=== PATIENT | female | born 1950 ===

== ENCOUNTER 2019-01-12 10:09 | Inpatient (IN) | payer MEDICARE ==
[2019-01-12 14:21] LABS: Alanine Aminotransferase 7 units/L (7-56); Albumin 3.9 g/dL (3.9-5); BUN/Creatinine Ratio 14; Blood Urea Nitrogen 13 mg/dL (7-17); Calcium 9.6 mg/dL (8.4-10.2); Hemolysis Index 13
[2019-01-12] MEDS ORDERED: GEODON IM PRN (20:46)
[2019-01-12] MEDS ORDERED: BENADRYL PO PRN (20:50)
[2019-01-12] MEDS: NAMENDA PO SCH (21:53)
[2019-01-12] MEDS: ARICEPT PO SCH (21:53)
[2019-01-12] MEDS: ATIVAN PO PRN (21:53)
[2019-01-12] MEDS: REMERON PO SCH (21:53)
[2019-01-13] MEDS ORDERED: SYNTHROID PO SCH (06:00)
[2019-01-13] MEDS: SYNTHROID PO SCH (06:09)
[2019-01-13] MEDS: RisperDAL PO SCH ×3 (08:25→21:12)
[2019-01-13] MEDS: NEURONTIN PO SCH ×3 (08:25→21:11)
--- NOTE | 2019-01-13 09:25 | History and Physical Report ---
GP History & Physical - History of Present Illness Date of admission: 01/12/19 Reason for Admission: Danger to self, Psychopathology interference, Unable to care for self Chief Complaint: Threatening suicide History of Present Illness: The patient is a 69yo female with advanced dementia and multiple medical problems. She reportedly threatened suicide by jumping from an overhang leading to her carer to request inpatient psych admission. The patient is severely demented, other than being able to state her name, she is not able to engage in meaningful conversation. She states her age as 22. She does not know where she is and why she is here. Legal Status: Voluntary Patient Problems: Current Active Problems MDD (major depressive disorder), recurrent episode, severe (Acute) Major neurocognitive disorder due to Alzheimer's disease, probable, with behavioral disturbance (Acute) Reaction to Hospitalization: Accepting Substance History - Substance History Drug Use: none Hx Tobacco Use: No Alcohol Use: No Past psychiatric history - Past Medical History Past Medical History: hypertension, hyperlipidemia, hypothyroidism - past Psychiatric treatment and history Psych: Depression - Social History Social history: other (Unable to obtain due to patient's factors) Review of Systems ROS unobtainable: due to mental status Results - Results Labs/Vitals: Laboratory Last Values Sodium 139 mmol/L (137-145) 01/12/19 13:29 Potassium 4.0 mmol/L (3.6-5.0) 01/12/19 13:29 Chloride 101.9 mmol/L (98-107) 01/12/19 13:29 Carbon Dioxide 25 mmol/L (22-30) 01/12/19 13:29 16 mmol/L 01/12/19 13:29 BUN 13 mg/dL (7-17) 01/12/19 13:29 0.9 mg/dL (0.7-1.2) 01/12/19 13:29 Estimated GFR > 60 ml/min 01/12/19 13:29 14 % 01/12/19 13:29 Glucose 126 mg/dL (65-100) H 01/12/19 13:29 Calcium 9.6 mg/dL (8.4-10.2) 01/12/19 13:29 0.30 mg/dL (0.1-1.2) 01/12/19 13:29 AST 15 units/L (5-40) 01/12/19 13:29 ALT 7 units/L (7-56) 01/12/19 13:29 92 units/L (35-129) 01/12/19 13:29 7.1 g/dL (6.3-8.2) 01/12/19 13:29 3.9 g/dL (3.9-5) 01/12/19 13:29 1.2 % 01/12/19 13:29 Last Vital Signs Temp 97.9 F 01/13/19 08:18 Pulse 71 01/13/19 08:18 Resp 20 01/13/19 08:18 BP 137/77 01/13/19 08:18 Pulse Ox 99 01/13/19 08:18 Physical Examination - Constitutional Vitals: Vital Signs Temp Pulse Resp BP Pulse Ox 97.9 F 71 20 137/77 99 01/13/19 08:18 01/13/19 08:18 01/13/19 08:18 01/13/19 08:18 01/13/19 08:18 Temperature -Last 24 Hours Temperature 97.9 F Temperature 98.6 F General appearance: Present: no acute distress - EENT Eyes: Present: PERRL, EOM intact ENT: hearing intact, clear oral mucosa - Neck Neck: Present: supple, normal ROM - Respiratory Respiratory effort: normal Mental Status Exam - Vital signs Last Vital Signs Temp 97.9 F 01/13/19 08:18 Pulse 71 01/13/19 08:18 Resp 20 01/13/19 08:18 BP 137/77 01/13/19 08:18 Pulse Ox 99 01/13/19 08:18 - Exam Orientation: person ((self only)) Affect: depressed Mood: congruent with affect Thought Process: Disorganized Perceptions: none Speech: paucity Concentration: distractible Motor activity: lethargic Level of consciousness: confused Memory: Recent Impaired, Remote Impaired Interaction: apathetic Mini mental status exam(if necessary): 0-17 Assessment and Plan - Psychiatric problem (1) MDD (major depressive disorder), recurrent episode, severe Current Visit: Yes Status: Acute plan to address problem: Patient will be admitted for inpatient psychiatric evaluation, medication adjustment and close monitoring The patient's behavior, mood, sleep and appetite will be closely monitored. Patient will be enrolled in individual and group therapeutic sessions and encouraged to attend. Patient will be provided with a safe and structured environment. Patient's physical health needs will be addressed by the Hospitalist. Social Assessment will be completed and the Loss Claim Clerk will work with patient and family to ensure a suitable and safe disposition Medication adjustment will be made as clinically indicated (2) Major neurocognitive disorder due to Alzheimer's disease, probable, with behavioral disturbance Current Visit: Yes Status: Acute plan to address problem: As above (3) Schizophrenia Current Visit: No Status: Acute plan to address problem: As above (4) Suicidal ideation Current Visit: No Status: Acute plan to address problem: As above Physician Certification - Certification Statement Physician Certification Statement: This is an acknowledgement statement that PEG PELAYO is a 69 year old F who requires inpatient psychiatric admission for treatment which could reasonably be expected to improve the patient's condition for depression Estimated period of time patient will need to remain in the hospital: 7 days Plan for post-hospital care: Out-patient treatment
[2019-01-13] MEDS: NAMENDA PO SCH ×2 (09:36→21:12)
[2019-01-13] MEDS: NORVASC PO SCH (09:36)
[2019-01-13] MEDS: COGENTIN PO SCH (09:38)
[2019-01-13] MEDS: ARICEPT PO SCH (21:12)
[2019-01-13] MEDS: REMERON PO SCH (21:12)
[2019-01-14] MEDS: SYNTHROID PO SCH (08:57)
[2019-01-14] MEDS: NORVASC PO SCH (10:54)
[2019-01-14] MEDS: NAMENDA PO SCH ×2 (10:55→21:47)
[2019-01-14] MEDS: NEURONTIN PO SCH ×3 (10:55→20:33)
[2019-01-14] MEDS: RisperDAL PO SCH ×3 (10:55→20:32)
[2019-01-14] MEDS: COGENTIN PO SCH (10:55)
--- NOTE | 2019-01-14 13:12 | Consultation ---
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 This history is from the chart as patient is severely demented, other than being able to state her name, she is not able to engage in meaningful conversation. Hospitalist/Internal medicine has been consulted for medical h-n-p. She denies any pains. PMH: as hpi PSH: "leg, back, neck, wrist, heart surgery" SH: no smoking, quit alcohol "65 months ago", denies drugs FH: refused to answer ROS: unable to obtain due to mental status Past History Past Medical History: hypertension, hyperlipidemia, hypothyroidism Social history: other (Unable to obtain due to patient's factors) Medications and Allergies Allergies Allergy/AdvReac Type Severity Reaction Status Date / Time No Known Allergies Allergy Verified 01/11/19 18:08 Home Medications Medication Instructions Recorded Confirmed Last Taken Type AtorvaSTATin [Lipitor] 10 mg PO DAILY 01/11/19 01/12/19 Unknown History Benztropine [Cogentin] 1 mg PO QDAY 01/11/19 01/12/19 Unknown History Donepezil [Aricept] 10 mg PO QHS 01/11/19 01/12/19 Unknown History Gabapentin [Neurontin] 400 mg PO TID 01/11/19 01/12/19 Unknown History Levothyroxine [Synthroid] 50 mcg PO QAM 01/11/19 01/12/19 Unknown History Memantine [Namenda] 10 mg PO BID 01/11/19 01/12/19 Unknown History Mirtazapine [Remeron 30mg TAB] 30 mg PO QHS 01/11/19 01/12/19 Unknown History amLODIPine [Norvasc] 10 mg PO DAILY 01/11/19 01/12/19 Unknown History risperiDONE [RisperDAL] 1 mg PO TID 01/11/19 01/12/19 Unknown History Active Meds: Active Medications Amlodipine Besylate (Norvasc) 10 mg PO QDAY [facility] Last Admin: 01/14/19 10:54 Dose: 10 mg Documented by: Atorvastatin Calcium (Lipitor) 10 mg PO QHS [facility] Last Admin: 01/13/19 21:11 Dose: 10 mg Documented by: Benztropine Mesylate (Cogentin) 1 mg PO QDAY [facility] Last Admin: 01/14/19 10:55 Dose: 1 mg Documented by: Diphenhydramine HCl (Benadryl) 50 mg PO Q6H PRN PRN Reason: Itching Donepezil HCl (Aricept) 10 mg PO QHS [facility] Last Admin: 01/13/19 21:12 Dose: 10 mg Documented by: Gabapentin (Neurontin) 400 mg PO TID [facility] Last Admin: 01/14/19 10:55 Dose: 400 mg Documented by: Haloperidol (Haldol) 5 mg PO Q6H PRN PRN Reason: Agitation Levothyroxine Sodium (Synthroid) 50 mcg PO DAILY@0600 [facility] Last Admin: 01/14/19 08:57 Dose: 50 mcg Documented by: Lorazepam (Ativan) 2 mg PO Q6H PRN PRN Reason: Agitation Last Admin: 01/12/19 21:53 Dose: 2 mg Documented by: Memantine (Namenda) 10 mg PO Q12HR [facility] Last Admin: 01/14/19 10:55 Dose: 10 mg Documented by: Mirtazapine (Remeron) 30 mg PO QHS [facility] Last Admin: 01/13/19 21:12 Dose: 30 mg Documented by: Risperidone (Risperdal) 1 mg PO TID [facility] Last Admin: 01/14/19 10:55 Dose: 1 mg Documented by: Ziprasidone (Geodon) 10 mg IM BID PRN PRN Reason: Agitation Exam - Physical Exam Narrative exam: Gen: WDWN, NAD, Awake, Alert, Orientated x 1 HEENT: NCAT, EOMI, PERRL, OP Clear Neck: supple, no adenopathy, no thyromegaly, no JVD CVS/Heart: RRR, normal S1S2, pulses present bilaterally Chest/Lungs: CTA B, Symmetrical chest expansion, good air entry bilaterally GI/Abdomen: soft, NTND, good bowel sounds, no guarding or rebound /Bladder: no suprapubic tenderness, no CVA or paraspinal tenderness Extermity/Skin: no c/c/e, no obvious rash MSK: FROM x 4 Neuro: CN 2-12 grossly intact, doesn't follow all commands, had facial asymmetry, gait is steady Psych: wondering, difficult to re-direct - Constitutional Vitals: Temp Pulse Resp BP Pulse Ox 97.9 F 63 20 178/84 99 01/13/19 10:00 01/14/19 10:54 01/13/19 10:00 01/14/19 10:54 01/13/19 10:00 Results - Labs CBC & Chem 7: 01/12/19 13:29 Assessment and Plan Patient is a 69 yo woman with a history of hypertension, hyperlipidemia, hypothyroidism, depression and Advance dementia with behavioral disturbances who presented to [facility] after she reportedly threatened suicide by 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 This history is from the chart as patient is severely demented, other than being able to state her name, she is not able to engage in meaningful conversation. Hospitalist/Internal medicine has been consulted for medical h-n-p. Hypertension: continue Norvasc, change diet to cardiac for low salt intake Hypothyroidism: check TSH, on levothyroxine 50 mcg and screen for anemia with cbc Dyslipidemia: check Lipid panel, on lipitor 10mg Advance dementia with behavior disturbances and SI: per Psych Hyperglycemia: check a1c cbc, lipid, tsh, a1c ordered
--- NOTE | 2019-01-14 15:41 | Progress Note ---
Subjective Date of service: 01/14/19 Principal diagnosis: Schizophrenia, depression, dementia Subjective Comment: Patient is severely confused, lethargic and at times assumes abnormal postures (?catatonia) Objective - Criteria for Continued Treatment Criteria for Continued Treatment: Improving Level of Functioning, Reducing Isolative Behaviors, Stablizing Level of Functioning, Improving Emotional/Socia - Mental Status Mental Status: Oriented x 1 Person only - Objective Observation Participation Level: Minimal Assessment and Plan - Patient Problems (1) MDD (major depressive disorder), recurrent episode, severe Current Visit: Yes Status: Acute Plan to address problem: Patient will be admitted for inpatient psychiatric evaluation, medication adjustment and close monitoring The patient's behavior, mood, sleep and appetite will be closely monitored. Patient will be enrolled in individual and group therapeutic sessions and encouraged to attend. Patient will be provided with a safe and structured environment. Patient's physical health needs will be addressed by the Hospitalist. Social Assessment will be completed and the General Office Clerk will work with patient and family to ensure a suitable and safe disposition Medication adjustment will be made as clinically indicated (2) Major neurocognitive disorder due to Alzheimer's disease, probable, with behavioral disturbance Current Visit: Yes Status: Acute (3) Schizophrenia Current Visit: No Status: Acute (4) Suicidal ideation Current Visit: No Status: Acute
[2019-01-14] MEDS: REMERON PO SCH (21:47)
[2019-01-14] MEDS: ARICEPT PO SCH (21:47)
[2019-01-15] MEDS: SYNTHROID PO SCH (05:48)
[2019-01-15] MEDS: NEURONTIN PO SCH ×3 (09:20→20:00)
[2019-01-15] MEDS: NAMENDA PO SCH ×2 (09:21→21:08)
[2019-01-15] MEDS: RisperDAL PO SCH ×3 (09:21→20:00)
[2019-01-15] MEDS: COGENTIN PO SCH (09:21)
[2019-01-15] MEDS: NORVASC PO SCH (10:00)
[2019-01-15 15:11] LABS: Hematocrit 39.4 % (30.3-42.9); Hemoglobin 12.8 gm/dl (10.1-14.3); Mean Corpuscular HGB Conc 32 % (30-34); Mean Corpuscular Volume 87 fl (79-97); Platelet Count 276 K/mm3 (140-440); Red Blood Count 4.52 M/mm3 (3.65-5.03); Red Cell Distribution Width 15.5 % (13.2-15.2)
[2019-01-15 15:26] LABS: Chol/HDL Ratio 3.24 %
[2019-01-15] MEDS: REMERON PO SCH (21:08)
[2019-01-15] MEDS: ARICEPT PO SCH (21:08)
[2019-01-16] MEDS: SYNTHROID PO SCH (07:05)
[2019-01-16] MEDS: RisperDAL PO SCH ×3 (08:51→20:13)
[2019-01-16] MEDS: NEURONTIN PO SCH ×3 (08:51→20:14)
[2019-01-16] MEDS: COGENTIN PO SCH (09:34)
[2019-01-16] MEDS: NAMENDA PO SCH ×2 (09:34→21:52)
[2019-01-16] MEDS: NORVASC PO SCH (09:35)
[2019-01-16] MEDS ORDERED: D50W (25GM) Syringe IV PRN (14:41)
--- NOTE | 2019-01-16 14:43 | Progress Note ---
Assessment and Plan Assessment and plan: Patient is a 69 yo woman with a history of hypertension, hyperlipidemia, hypothyroidism, depression and Advance dementia with behavioral disturbances who presented to [facility] after she reportedly threatened suicide by jumping from an overhang leading to her feltmaker and weigher to request inpatient psych admission. This history is from the chart as patient is severely demented, other than being able to state her name, she is not able to engage in meaningful conversation. Hospitalist/Internal medicine has been consulted for medical h-n-p. Hypertension: continue Norvasc, change diet to cardiac for low salt intake Hypothyroidism: check TSH, on levothyroxine 50 mcg and screen for anemia with cbc Type 2 DM, new?: d/w patient, start Metformin and add ssi and accuchecks Dyslipidemia: check Lipid panel, on lipitor 10mg Advance dementia with behavior disturbances and SI: per Psych Hyperglycemia: check a1c cbc, lipid, tsh, a1c ordered==>patient refused labwork, then started taking antipsych meds and labworks reviewed, and showed elevated TSH, most likely due to noncompliance and not taking levothyroxine, most likely DM type 2 with A1c 7.8 considering adding metformin if she allows, lipid panel is abnormal due to noncompliance. History Interval history: Patient seen and examined. Follow up labs. Patient still confused. Hospitalist Physical - Physical exam Narrative exam: Gen: WDWN, NAD, Awake, Alert, Orientated x 1 HEENT: NCAT, EOMI, PERRL, OP Clear Neck: supple, no adenopathy, no thyromegaly, no JVD CVS/Heart: RRR, normal S1S2, pulses present bilaterally Chest/Lungs: CTA B, Symmetrical chest expansion, good air entry bilaterally GI/Abdomen: soft, NTND, good bowel sounds, no guarding or rebound /Bladder: no suprapubic tenderness, no CVA or paraspinal tenderness Extermity/Skin: no c/c/e, no obvious rash MSK: FROM x 4 Neuro: CN 2-12 grossly intact, doesn't follow all commands, had facial asymmetry, gait is steady Psych: wondering, difficult to re-direct - Constitutional Vitals: Temp Pulse Resp BP Pulse Ox 98.2 F 66 16 118/70 96 01/16/19 11:36 01/16/19 11:36 01/16/19 11:36 01/16/19 11:36 01/16/19 11:36 General appearance: Present: no acute distress Results - Labs CBC & Chem 7: 01/15/19 14:47 01/12/19 13:29 Labs: Laboratory Last Values WBC 5.6 K/mm3 (4.5-11.0) 01/15/19 14:47 RBC 4.52 M/mm3 (3.65-5.03) 01/15/19 14:47 Hgb 12.8 gm/dl (10.1-14.3) 01/15/19 14:47 Hct 39.4 % (30.3-42.9) 01/15/19 14:47 MCV 87 fl (79-97) 01/15/19 14:47 MCH 28 pg (28-32) 01/15/19 14:47 MCHC 32 % (30-34) 01/15/19 14:47 RDW 15.5 % (13.2-15.2) H 01/15/19 14:47 Plt Count 276 K/mm3 (140-440) 01/15/19 14:47 Sodium 139 mmol/L (137-145) 01/12/19 13:29 Potassium 4.0 mmol/L (3.6-5.0) 01/12/19 13:29 Chloride 101.9 mmol/L (98-107) 01/12/19 13:29 Carbon Dioxide 25 mmol/L (22-30) 01/12/19 13:29 16 mmol/L 01/12/19 13:29 BUN 13 mg/dL (7-17) 01/12/19 13:29 0.9 mg/dL (0.7-1.2) 01/12/19 13:29 Estimated GFR > 60 ml/min 01/12/19 13:29 14 % 01/12/19 13:29 Glucose 126 mg/dL (65-100) H 01/12/19 13:29 7.8 % (4-6) H 01/15/19 14:47 Calcium 9.6 mg/dL (8.4-10.2) 01/12/19 13:29 0.30 mg/dL (0.1-1.2) 01/12/19 13:29 AST 15 units/L (5-40) 01/12/19 13:29 ALT 7 units/L (7-56) 01/12/19 13:29 92 units/L (35-129) 01/12/19 13:29 7.1 g/dL (6.3-8.2) 01/12/19 13:29 3.9 g/dL (3.9-5) 01/12/19 13:29 1.2 % 01/12/19 13:29 Triglycerides 100 mg/dL (2-149) 01/15/19 14:47 Cholesterol 188 mg/dL (50-199) 01/15/19 14:47 130 mg/dL (50-130) 01/15/19 14:47 58 mg/dL (40-59) 01/15/19 14:47 3.24 % 01/15/19 14:47 TSH 11.210 mlU/mL (0.270-4.200) H 01/15/19 14:47 Active Medications - Current Medications Current Medications: Generic Name Dose Route Start Last Admin Trade Name Freq PRN Reason Stop Dose Admin Amlodipine Besylate 10 mg 01/13/19 10:00 01/16/19 09:35 Norvasc PO 10 mg QDAY [facility] Administration Atorvastatin Calcium 10 mg 01/12/19 22:00 01/15/19 21:08 Lipitor PO 10 mg QHS [facility] Administration Benztropine Mesylate 1 mg 01/13/19 10:00 01/16/19 09:34 Cogentin PO 1 mg QDAY [facility] Administration Donepezil HCl 10 mg 01/12/19 22:00 01/15/19 21:08 Aricept PO 10 mg QHS [facility] Administration Gabapentin 400 mg 01/13/19 08:00 01/16/19 08:51 Neurontin PO 400 mg TID [facility] Administration Haloperidol 5 mg 01/12/19 20:49 Haldol PO Q6H PRN Agitation Levothyroxine Sodium 50 mcg 01/13/19 06:00 01/16/19 07:05 Synthroid PO 50 mcg DAILY@0600 [facility] Administration Lorazepam 2 mg 01/12/19 20:48 01/12/19 21:53 Ativan PO 2 mg Q6H PRN Administration Agitation Memantine 10 mg 01/12/19 22:00 01/16/19 09:34 Namenda PO 10 mg Q12HR [facility] Administration Metformin HCl 500 mg 01/16/19 17:00 Glucophage PO BIDDIAB [facility] Mirtazapine 30 mg 01/12/19 22:00 01/15/19 21:08 Remeron PO 30 mg QHS [facility] Administration Risperidone 1 mg 01/13/19 08:00 01/16/19 08:51 Risperdal PO 1 mg TID [facility] Administration
[2019-01-16] MEDS: GLUCOPHAGE PO SCH (15:59)
[2019-01-16] MEDS: HumaLOG SUB-Q SCH (16:29)
[2019-01-16] MEDS: ARICEPT PO SCH (21:52)
[2019-01-16] MEDS: REMERON PO SCH (21:52)
[2019-01-16] MEDS: ATIVAN PO PRN (21:52)
[2019-01-17] MEDS: SYNTHROID PO SCH (05:41)
[2019-01-17] MEDS: HumaLOG SUB-Q SCH ×3 (08:33→17:45)
[2019-01-17] MEDS: GLUCOPHAGE PO SCH ×2 (08:57→16:11)
[2019-01-17] MEDS: NEURONTIN PO SCH ×3 (08:57→20:52)
[2019-01-17] MEDS: RisperDAL PO SCH ×3 (08:57→20:52)
[2019-01-17] MEDS: COGENTIN PO SCH (11:28)
[2019-01-17] MEDS: NAMENDA PO SCH ×2 (11:29→21:00)
--- NOTE | 2019-01-17 11:29 | Progress Note ---
Subjective Date of service: 01/15/19 Principal diagnosis: Schizophrenia, depression, dementia Subjective Comment: Patient is severely confused, unable to engage in conversation, paces, eating and sleeping well. Objective - Criteria for Continued Treatment Criteria for Continued Treatment: Improving Level of Functioning, Stablizing Level of Functioning, Improving Emotional/Socia - Mental Status Mental Status: Oriented x 1 Person only - Objective Observation Participation Level: None Reason(s) For Not Participating: Unable Assessment and Plan - Patient Problems (1) MDD (major depressive disorder), recurrent episode, severe Current Visit: Yes Status: Acute Plan to address problem: Patient will be admitted for inpatient psychiatric evaluation, medication adjustment and close monitoring The patient's behavior, mood, sleep and appetite will be closely monitored. Patient will be enrolled in individual and group therapeutic sessions and encouraged to attend. Patient will be provided with a safe and structured environment. Patient's physical health needs will be addressed by the Hospitalist. Social Assessment will be completed and the Lasting Machine Operator Hand Method will work with patient and family to ensure a suitable and safe disposition Medication adjustment will be made as clinically indicated (2) Major neurocognitive disorder due to Alzheimer's disease, probable, with behavioral disturbance Current Visit: Yes Status: Acute Plan to address problem: As above (3) Schizophrenia Current Visit: No Status: Acute Plan to address problem: As above (4) Suicidal ideation Current Visit: No Status: Acute Plan to address problem: As above
[2019-01-17] MEDS: NORVASC PO SCH (11:31)
--- NOTE | 2019-01-17 11:31 | Progress Note ---
Subjective Date of service: 01/16/19 Principal diagnosis: Schizophrenia, depression, dementia Subjective Comment: Patient is compliant with meds and cooperative with cares. She is severely confused, unable to engage in conversation, paces, eating and sleeping well. Objective - Criteria for Continued Treatment Criteria for Continued Treatment: Stablizing Level of Functioning, Improving Emotional/Socia - Mental Status Mental Status: Oriented x 1 Person only - Objective Observation Participation Level: None Reason(s) For Not Participating: Unable Assessment and Plan - Patient Problems (1) MDD (major depressive disorder), recurrent episode, severe Current Visit: Yes Status: Acute Plan to address problem: Patient will be admitted for inpatient psychiatric evaluation, medication adjustment and close monitoring The patient's behavior, mood, sleep and appetite will be closely monitored. Patient will be enrolled in individual and group therapeutic sessions and encouraged to attend. Patient will be provided with a safe and structured environment. Patient's physical health needs will be addressed by the Hospitalist. 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
--- NOTE | 2019-01-17 11:32 | Progress Note ---
Subjective Date of service: 01/17/19 Principal diagnosis: Schizophrenia, depression, dementia Subjective Comment: Patient is compliant with meds and cooperative with cares. She is severely confused, unable to engage in conversation, paces, eating and sleeping well. Objective - Criteria for Continued Treatment Criteria for Continued Treatment: Stablizing Level of Functioning, Improving Emotional/Socia - Mental Status Mental Status: Oriented x 1 Person only - Objective Observation Participation Level: Minimal Assessment and Plan - Patient Problems (1) MDD (major depressive disorder), recurrent episode, severe Current Visit: Yes Status: Acute Plan to address problem: Patient will be admitted for inpatient psychiatric evaluation, medication adjustment and close monitoring The patient's behavior, mood, sleep and appetite will be closely monitored. Patient will be enrolled in individual and group therapeutic sessions and encouraged to attend. Patient will be provided with a safe and structured environment. Patient's physical health needs will be addressed by the Hospitalist. Social Assessment will be completed and the Score Caller will work with patient and family to ensure a suitable and safe disposition Medication adjustment will be made as clinically indicated (2) Major neurocognitive disorder due to Alzheimer's disease, probable, with behavioral disturbance Current Visit: Yes Status: Acute Plan to address problem: As above (3) Schizophrenia Current Visit: No Status: Acute Plan to address problem: As above (4) Suicidal ideation Current Visit: No Status: Acute Plan to address problem: As above
[2019-01-17] MEDS: REMERON PO SCH (21:00)
[2019-01-17] MEDS: ARICEPT PO SCH (21:00)
[2019-01-18] MEDS: SYNTHROID PO SCH (06:06)
[2019-01-18] MEDS: HumaLOG SUB-Q SCH ×3 (08:51→17:01)
[2019-01-18] MEDS: NEURONTIN PO SCH ×3 (08:52→20:33)
[2019-01-18] MEDS: GLUCOPHAGE PO SCH ×2 (08:52→18:32)
[2019-01-18] MEDS: RisperDAL PO SCH ×3 (08:52→20:33)
[2019-01-18] MEDS: NAMENDA PO SCH ×2 (10:21→21:57)
[2019-01-18] MEDS: COGENTIN PO SCH (10:21)
[2019-01-18] MEDS: NORVASC PO SCH (10:28)
--- NOTE | 2019-01-18 11:38 | Progress Note ---
Subjective Date of service: 01/18/19 Principal diagnosis: Schizophrenia, depression, dementia Subjective Comment: Patient is compliant with meds and cooperative with cares. She is severely confused, unable to engage in conversation, paces, eating and sleeping well. Objective - Criteria for Continued Treatment Criteria for Continued Treatment: Improving Level of Functioning, Stablizing Level of Functioning, Improving Emotional/Socia - Mental Status Mental Status: Oriented x 1 Person only - Objective Observation Participation Level: Minimal Reason(s) For Not Participating: Unable Assessment and Plan - Patient Problems (1) MDD (major depressive disorder), recurrent episode, severe Current Visit: Yes Status: Acute Plan to address problem: Patient will be admitted for inpatient psychiatric evaluation, medication adjustment and close monitoring The patient's behavior, mood, sleep and appetite will be closely monitored. Patient will be enrolled in individual and group therapeutic sessions and encouraged to attend. Patient will be provided with a safe and structured environment. Patient's physical health needs will be addressed by the Hospitalist. Social Assessment will be completed and the Prefitter Doors will work with patient and family to ensure a suitable and safe disposition Medication adjustment will be made as clinically indicated (2) Major neurocognitive disorder due to Alzheimer's disease, probable, with behavioral disturbance Current Visit: Yes Status: Acute (3) Schizophrenia Current Visit: No Status: Acute (4) Suicidal ideation Current Visit: No Status: Acute
[2019-01-18] MEDS: ARICEPT PO SCH (21:47)
[2019-01-18] MEDS: REMERON PO SCH (21:47)
[2019-01-19] MEDS: SYNTHROID PO SCH (05:21)
[2019-01-19] MEDS: HumaLOG SUB-Q SCH ×3 (08:28→19:27)
[2019-01-19] MEDS: RisperDAL PO SCH ×3 (10:26→20:17)
[2019-01-19] MEDS: NEURONTIN PO SCH ×3 (10:26→20:17)
[2019-01-19] MEDS: GLUCOPHAGE PO SCH ×2 (10:26→17:38)
[2019-01-19] MEDS: NAMENDA PO SCH ×2 (10:27→21:26)
[2019-01-19] MEDS: COGENTIN PO SCH (10:27)
[2019-01-19] MEDS: NORVASC PO SCH (10:28)
--- NOTE | 2019-01-19 11:00 | Progress Note ---
Subjective Date of service: 01/19/19 Principal diagnosis: Schizophrenia, depression, dementia Subjective Comment: Patient is doing better, she is compliant with meds and cooperative with cares. She is severely confused, unable to engage in conversation, paces, gait is more steady, eating and sleeping well. Objective - Criteria for Continued Treatment Criteria for Continued Treatment: Stablizing Level of Functioning - Mental Status Mental Status: Oriented x 1 Person only Assessment and Plan - Patient Problems (1) MDD (major depressive disorder), recurrent episode, severe Current Visit: Yes Status: Acute Plan to address problem: Patient will be admitted for inpatient psychiatric evaluation, medication adjustment and close monitoring The patient's behavior, mood, sleep and appetite will be closely monitored. Patient will be enrolled in individual and group therapeutic sessions and encouraged to attend. Patient will be provided with a safe and structured environment. Patient's physical health needs will be addressed by the Hospitalist. Social Assessment will be completed and the Rubber Thread Spooler will work with patient and family to ensure a suitable and safe disposition Medication adjustment will be made as clinically indicated (2) Major neurocognitive disorder due to Alzheimer's disease, probable, with behavioral disturbance Current Visit: Yes Status: Acute Plan to address problem: As above (3) Schizophrenia Current Visit: No Status: Acute Plan to address problem: As above (4) Suicidal ideation Current Visit: No Status: Acute Plan to address problem: As above
[2019-01-19] MEDS: ATIVAN PO PRN (20:19)
[2019-01-19] MEDS: ARICEPT PO SCH (21:25)
[2019-01-19] MEDS: REMERON PO SCH (21:26)
[2019-01-20] MEDS: SYNTHROID PO SCH (05:39)
[2019-01-20] MEDS: GLUCOPHAGE PO SCH ×2 (08:19→17:00)
[2019-01-20] MEDS: HumaLOG SUB-Q SCH ×3 (08:19→17:00)
[2019-01-20] MEDS: RisperDAL PO SCH ×3 (08:20→20:28)
[2019-01-20] MEDS: NEURONTIN PO SCH ×3 (08:20→20:28)
--- NOTE | 2019-01-20 11:19 | Progress Note ---
Subjective Date of service: 01/20/19 Principal diagnosis: Schizophrenia, depression, dementia Subjective Comment: Patient is doing better, she is compliant with meds and cooperative with cares. She is severely confused, unable to engage in conversation, paces, gait is more steady, eating and sleeping well. Objective - Criteria for Continued Treatment Criteria for Continued Treatment: Improving Level of Functioning, Stablizing Level of Functioning, Improving Emotional/Socia, Decreasing Frequency of Hospitalization - Mental Status Mental Status: Oriented x 1 Person only - Objective Observation Participation Level: Minimal Assessment and Plan - Patient Problems (1) MDD (major depressive disorder), recurrent episode, severe Current Visit: Yes Status: Acute Plan to address problem: Patient will be admitted for inpatient psychiatric evaluation, medication adjustment and close monitoring The patient's behavior, mood, sleep and appetite will be closely monitored. Patient will be enrolled in individual and group therapeutic sessions and encouraged to attend. Patient will be provided with a safe and structured environment. Patient's physical health needs will be addressed by the Hospitalist. Social Assessment will be completed and the Rail Doweling Machine Operator will work with patient and family to ensure a suitable and safe disposition Medication adjustment will be made as clinically indicated. Will decrease Gabapentin to 300mg tid due to excessive sedation (2) Major neurocognitive disorder due to Alzheimer's disease, probable, with behavioral disturbance Current Visit: Yes Status: Acute Plan to address problem: As above (3) Schizophrenia Current Visit: No Status: Acute Plan to address problem: As above (4) Suicidal ideation Current Visit: No Status: Acute Plan to address problem: As above Medications and Allergies Allergies Allergy/AdvReac Type Severity Reaction Status Date / Time No Known Allergies Allergy Verified 01/11/19 18:08 Home Medications Medication Instructions Recorded Confirmed Last Taken Type AtorvaSTATin [Lipitor] 10 mg PO DAILY 01/11/19 01/12/19 Unknown History Benztropine [Cogentin] 1 mg PO QDAY 01/11/19 01/12/19 Unknown History Donepezil [Aricept] 10 mg PO QHS 01/11/19 01/12/19 Unknown History Gabapentin [Neurontin] 400 mg PO TID 01/11/19 01/12/19 Unknown History Levothyroxine [Synthroid] 50 mcg PO QAM 01/11/19 01/12/19 Unknown History Memantine [Namenda] 10 mg PO BID 01/11/19 01/12/19 Unknown History Mirtazapine [Remeron 30mg TAB] 30 mg PO QHS 01/11/19 01/12/19 Unknown History amLODIPine [Norvasc] 10 mg PO DAILY 01/11/19 01/12/19 Unknown History risperiDONE [RisperDAL] 1 mg PO TID 01/11/19 01/12/19 Unknown History Active Meds: Active Medications Amlodipine Besylate (Norvasc) 10 mg PO QDAY [facility] Last Admin: 01/19/19 10:28 Dose: 10 mg Documented by: Atorvastatin Calcium (Lipitor) 10 mg PO QHS [facility] Last Admin: 01/19/19 21:26 Dose: 10 mg Documented by: Benztropine Mesylate (Cogentin) 1 mg PO QDAY [facility] Last Admin: 01/19/19 10:27 Dose: 1 mg Documented by: Dextrose (D50w (25gm) Syringe) 50 ml IV PRN PRN PRN Reason: Hypoglycemia Donepezil HCl (Aricept) 10 mg PO QHS [facility] Last Admin: 01/19/19 21:25 Dose: 10 mg Documented by: Gabapentin (Neurontin) 400 mg PO TID [facility] Last Admin: 01/20/19 08:20 Dose: 400 mg Documented by: Haloperidol (Haldol) 5 mg PO Q6H PRN PRN Reason: Agitation Insulin Human Lispro (Humalog) 0 unit SUB-Q [facility]; Protocol Last Admin: 01/20/19 08:19 Dose: Not Given Documented by: Levothyroxine Sodium (Synthroid) 50 mcg PO DAILY@0600 [facility] Last Admin: 01/20/19 05:39 Dose: 50 mcg Documented by: Lorazepam (Ativan) 2 mg PO Q6H PRN PRN Reason: Agitation Last Admin: 01/19/19 20:19 Dose: 2 mg Documented by: Memantine (Namenda) 10 mg PO Q12HR [facility] Last Admin: 01/19/19 21:26 Dose: 10 mg Documented by: Metformin HCl (Glucophage) 500 mg PO BIDDIAB [facility] Last Admin: 01/20/19 08:19 Dose: 500 mg Documented by: Mirtazapine (Remeron) 30 mg PO QHS [facility] Last Admin: 01/19/19 21:26 Dose: 30 mg Documented by: Risperidone (Risperdal) 1 mg PO TID [facility] Last Admin: 01/20/19 08:20 Dose: 1 mg Documented by:
[2019-01-20] MEDS: NORVASC PO SCH (11:24)
[2019-01-20] MEDS: NAMENDA PO SCH ×2 (11:24→21:18)
[2019-01-20] MEDS: COGENTIN PO SCH (11:25)
[2019-01-20] MEDS: REMERON PO SCH (21:18)
[2019-01-20] MEDS: ARICEPT PO SCH (21:18)
[2019-01-20] MEDS: ATIVAN PO PRN (21:18)
[2019-01-20] MEDS: HALDOL PO PRN (23:34)
[2019-01-21] MEDS: SYNTHROID PO SCH (06:30)
[2019-01-21] MEDS: RisperDAL PO SCH ×3 (07:58→21:40)
[2019-01-21] MEDS: NEURONTIN PO SCH ×3 (07:58→21:40)
[2019-01-21] MEDS: GLUCOPHAGE PO SCH ×2 (07:58→18:56)
[2019-01-21] MEDS: HumaLOG SUB-Q SCH ×3 (07:59→18:57)
--- NOTE | 2019-01-21 09:05 | Progress Note ---
Subjective Date of service: 01/21/19 Principal diagnosis: Schizophrenia, depression, dementia Subjective Comment: Patient did not sleep well last night. She is agitated, restless and disrobing in common areas of the chi. She is severely confused, unable to engage in conversation, paces, gait is more steady, eating and sleeping well. Objective - Criteria for Continued Treatment Criteria for Continued Treatment: Improving Level of Functioning, Stablizing Level of Functioning, Improving Emotional/Socia, Decreasing Frequency of Hospitalization - Mental Status Mental Status: Oriented x 1 Person only - Objective Observation Participation Level: Minimal Assessment and Plan - Patient Problems (1) MDD (major depressive disorder), recurrent episode, severe Current Visit: Yes Status: Acute Plan to address problem: Patient will be admitted for inpatient psychiatric evaluation, medication adjustment and close monitoring The patient's behavior, mood, sleep and appetite will be closely monitored. Patient will be enrolled in individual and group therapeutic sessions and encouraged to attend. Patient will be provided with a safe and structured environment. Patient's physical health needs will be addressed by the Hospitalist. Social Assessment will be completed and the Care Worker will work with patient and family to ensure a suitable and safe disposition Medication adjustment will be made as clinically indicated. (2) Major neurocognitive disorder due to Alzheimer's disease, probable, with behavioral disturbance Current Visit: Yes Status: Acute Plan to address problem: As above (3) Schizophrenia Current Visit: No Status: Acute Plan to address problem: As above (4) Suicidal ideation Current Visit: No Status: Acute Plan to address problem: As above
[2019-01-21] MEDS: NAMENDA PO SCH ×2 (13:30→21:40)
[2019-01-21] MEDS: NORVASC PO SCH (13:31)
[2019-01-21] MEDS: COGENTIN PO SCH (13:32)
[2019-01-21] MEDS: ARICEPT PO SCH (21:40)
[2019-01-21] MEDS: REMERON PO SCH (21:40)
[2019-01-22] MEDS: SYNTHROID PO SCH (06:19)
--- NOTE | 2019-01-22 08:26 | Progress Note ---
Subjective Date of service: 01/22/19 Principal diagnosis: Schizophrenia, depression, dementia Subjective Comment: Patient is calm this morning. She is severely confused, unable to engage in conversation, paces, gait is more steady, eating and sleeping well. Objective - Criteria for Continued Treatment Criteria for Continued Treatment: Improving Level of Functioning, Stablizing Level of Functioning, Improving Emotional/Socia - Mental Status Mental Status: Oriented x 1 Person only - Objective Observation Participation Level: Moderate Assessment and Plan - Patient Problems (1) MDD (major depressive disorder), recurrent episode, severe Current Visit: Yes Status: Acute Plan to address problem: Patient will be admitted for inpatient psychiatric evaluation, medication adjustment and close monitoring The patient's behavior, mood, sleep and appetite will be closely monitored. Patient will be enrolled in individual and group therapeutic sessions and encouraged to attend. Patient will be provided with a safe and structured environment. Patient's physical health needs will be addressed by the Hospitalist. Social Assessment will be completed and the Flour Inspector will work with patient and family to ensure a suitable and safe disposition Medication adjustment will be made as clinically indicated. (2) Major neurocognitive disorder due to Alzheimer's disease, probable, with behavioral disturbance Current Visit: Yes Status: Acute Plan to address problem: As above (3) Schizophrenia Current Visit: No Status: Acute Plan to address problem: As above (4) Suicidal ideation Current Visit: No Status: Acute Plan to address problem: As above Medications & Allergies - Medications Allergies/Adverse Reactions: Allergies No Known Allergies Allergy (Verified 01/11/19 18:08) Home Medications: Home Medications Medication Instructions Recorded Confirmed Last Taken Type AtorvaSTATin [Lipitor] 10 mg PO DAILY 01/11/19 01/12/19 Unknown History Benztropine [Cogentin] 1 mg PO QDAY 01/11/19 01/12/19 Unknown History Donepezil [Aricept] 10 mg PO QHS 01/11/19 01/12/19 Unknown History Gabapentin [Neurontin] 400 mg PO TID 01/11/19 01/12/19 Unknown History Levothyroxine [Synthroid] 50 mcg PO QAM 01/11/19 01/12/19 Unknown History Memantine [Namenda] 10 mg PO BID 01/11/19 01/12/19 Unknown History Mirtazapine [Remeron 30mg TAB] 30 mg PO QHS 01/11/19 01/12/19 Unknown History amLODIPine [Norvasc] 10 mg PO DAILY 01/11/19 01/12/19 Unknown History risperiDONE [RisperDAL] 1 mg PO TID 01/11/19 01/12/19 Unknown History Active Medications: Generic Name Dose Route Start Last Admin Trade Name Darshana PRN Reason Stop Dose Admin Amlodipine Besylate 10 mg 01/13/19 10:00 01/21/19 13:31 Norvasc PO 10 mg QDAY [facility] Administration Atorvastatin Calcium 10 mg 01/12/19 22:00 01/21/19 21:40 Lipitor PO 10 mg QHS [facility] Administration Benztropine Mesylate 1 mg 01/13/19 10:00 01/21/19 13:32 Cogentin PO 1 mg QDAY [facility] Administration Dextrose 50 ml 01/16/19 14:41 D50w (25gm) Syringe IV PRN PRN Hypoglycemia Donepezil HCl 10 mg 01/12/19 22:00 01/21/19 21:40 Aricept PO 10 mg QHS [facility] Administration Gabapentin 400 mg 01/13/19 08:00 01/21/19 21:40 Neurontin PO 400 mg TID [facility] Administration Haloperidol 5 mg 01/12/19 20:49 01/20/19 23:34 Haldol PO 5 mg Q6H PRN Administration Agitation Insulin Human Lispro 0 unit 01/16/19 16:30 01/21/19 18:57 Humalog SUB-Q Not Given [facility] Protocol Levothyroxine Sodium 50 mcg 01/13/19 06:00 01/22/19 06:19 Synthroid PO 50 mcg DAILY@0600 [facility] Administration Lorazepam 2 mg 01/12/19 20:48 01/20/19 21:18 Ativan PO 2 mg Q6H PRN Administration Agitation Memantine 10 mg 01/12/19 22:00 01/21/19 21:40 Namenda PO 10 mg Q12HR [facility] Administration Metformin HCl 500 mg 01/16/19 17:00 01/21/19 18:56 Glucophage PO Not Given BIDDIAB [facility] Mirtazapine 30 mg 01/12/19 22:00 01/21/19 21:40 Remeron PO 30 mg QHS [facility] Administration Risperidone 1 mg 01/13/19 08:00 01/21/19 21:40 Risperdal PO 1 mg TID [facility] Administration
[2019-01-22] MEDS: HumaLOG SUB-Q SCH ×3 (08:56→16:07)
[2019-01-22] MEDS: GLUCOPHAGE PO SCH ×2 (08:57→16:07)
[2019-01-22] MEDS: RisperDAL PO SCH ×3 (08:58→21:10)
[2019-01-22] MEDS: NEURONTIN PO SCH ×3 (08:58→21:10)
[2019-01-22] MEDS: NAMENDA PO SCH ×2 (09:20→21:10)
[2019-01-22] MEDS: COGENTIN PO SCH (09:20)
[2019-01-22] MEDS: NORVASC PO SCH (11:01)
[2019-01-22] MEDS: ATIVAN PO PRN ×2 (15:52→21:11)
[2019-01-22] MEDS: REMERON PO SCH (21:10)
[2019-01-22] MEDS: ARICEPT PO SCH (21:10)
[2019-01-22] MEDS: HALDOL PO PRN (21:10)
[2019-01-23] MEDS: SYNTHROID PO SCH (05:50)
[2019-01-23] MEDS: HumaLOG SUB-Q SCH ×3 (08:46→16:53)
[2019-01-23] MEDS: GLUCOPHAGE PO SCH ×2 (09:09→16:53)
[2019-01-23] MEDS: RisperDAL PO SCH ×3 (09:09→19:54)
[2019-01-23] MEDS: NEURONTIN PO SCH ×3 (09:09→19:54)
[2019-01-23] MEDS: NORVASC PO SCH (09:45)
[2019-01-23] MEDS: COGENTIN PO SCH (09:45)
[2019-01-23] MEDS: NAMENDA PO SCH ×2 (09:45→21:16)
[2019-01-23] MEDS: HALDOL PO PRN (09:57)
[2019-01-23] MEDS: ATIVAN PO PRN (10:55)
--- NOTE | 2019-01-23 20:00 | Progress Note ---
Subjective Date of service: 01/23/19 Principal diagnosis: Schizophrenia, depression, dementia Subjective Comment: Patient is hyperactive, agitated, intrusive and disruptive. She attempted to turn off another patient's Oxygen. She received PRN Haldol and Lorazepam which was effective. Objective - Criteria for Continued Treatment Criteria for Continued Treatment: Improving Level of Functioning, Stablizing Level of Functioning, Improving Emotional/Socia - Mental Status Mental Status: Oriented x 1 Person only - Objective Observation Participation Level: Minimal Assessment and Plan - Patient Problems (1) MDD (major depressive disorder), recurrent episode, severe Current Visit: Yes Status: Acute Plan to address problem: Patient will be admitted for inpatient psychiatric evaluation, medication adjustment and close monitoring The patient's behavior, mood, sleep and appetite will be closely monitored. Patient will be enrolled in individual and group therapeutic sessions and encouraged to attend. Patient will be provided with a safe and structured environment. Patient's physical health needs will be addressed by the Hospitalist. Social Assessment will be completed and the Music Publicist will work with pa tient and family to ensure a suitable and safe disposition Medication adjustment will be made as clinically indicated. (2) Major neurocognitive disorder due to Alzheimer's disease, probable, with behavioral disturbance Current Visit: Yes Status: Acute Plan to address problem: As above (3) Schizophrenia Current Visit: No Status: Acute Plan to address problem: As above (4) Suicidal ideation Current Visit: No Status: Acute Plan to address problem: As above Medications & Allergies - Medications Allergies/Adverse Reactions: Allergies No Known Allergies Allergy (Verified 01/11/19 18:08) Home Medications: Home Medications Medication Instructions Recorded Confirmed Last Taken Type AtorvaSTATin [Lipitor] 10 mg PO DAILY 01/11/19 01/12/19 Unknown History Benztropine [Cogentin] 1 mg PO QDAY 01/11/19 01/12/19 Unknown History Donepezil [Aricept] 10 mg PO QHS 01/11/19 01/12/19 Unknown History Gabapentin [Neurontin] 400 mg PO TID 01/11/19 01/12/19 Unknown History Levothyroxine [Synthroid] 50 mcg PO QAM 01/11/19 01/12/19 Unknown History Memantine [Namenda] 10 mg PO BID 01/11/19 01/12/19 Unknown History Mirtazapine [Remeron 30mg TAB] 30 mg PO QHS 01/11/19 01/12/19 Unknown History amLODIPine [Norvasc] 10 mg PO DAILY 01/11/19 01/12/19 Unknown History risperiDONE [RisperDAL] 1 mg PO TID 01/11/19 01/12/19 Unknown History Active Medications: Generic Name Dose Route Start Last Admin Trade Name Freq PRN Reason Stop Dose Admin Amlodipine Besylate 10 mg 01/13/19 10:00 01/23/19 09:45 Norvasc PO 10 mg QDAY [facility] Administration Atorvastatin Calcium 10 mg 01/12/19 22:00 01/22/19 21:10 Lipitor PO 10 mg QHS [facility] Administration Benztropine Mesylate 1 mg 01/13/19 10:00 01/23/19 09:45 Cogentin PO 1 mg QDAY [facility] Administration Dextrose 50 ml 01/16/19 14:41 D50w (25gm) Syringe IV PRN PRN Hypoglycemia Donepezil HCl 10 mg 01/12/19 22:00 01/22/19 21:10 Aricept PO 10 mg QHS [facility] Administration Gabapentin 400 mg 01/13/19 08:00 01/23/19 19:54 Neurontin PO 400 mg TID [facility] Administration Haloperidol 5 mg 01/12/19 20:49 01/23/19 09:57 Haldol PO 5 mg Q6H PRN Administration Agitation Insulin Human Lispro 0 unit 01/16/19 16:30 01/23/19 16:53 Humalog SUB-Q Not Given [facility] Protocol Levothyroxine Sodium 50 mcg 01/13/19 06:00 01/23/19 05:50 Synthroid PO 50 mcg DAILY@0600 [facility] Administration Lorazepam 2 mg 01/12/19 20:48 01/23/19 10:55 Ativan PO 2 mg Q6H PRN Administration Agitation Memantine 10 mg 01/12/19 22:00 01/23/19 09:45 Namenda PO 10 mg Q12HR [facility] Administration Metformin HCl 500 mg 01/16/19 17:00 01/23/19 16:53 Glucophage PO Not Given BIDDIAB [facility] Mirtazapine 30 mg 01/12/19 22:00 01/22/19 21:10 Remeron PO 30 mg QHS [facility] Administration Risperidone 1 mg 01/13/19 08:00 01/23/19 19:54 Risperdal PO 1 mg TID [facility] Administration
[2019-01-23 20:53] LABS: Bilirubin,Urine NEG (Negative); Blood,Urine NEG (Negative); Color,Urine Yellow (Yellow); Mucus,Urine FEW /HPF; Protein,Urine <15 mg/dL mg/dL (Negative); Urobilinogen,Urine < 2.0 mg/dL (<2.0)
[2019-01-23] MEDS: ARICEPT PO SCH (21:16)
[2019-01-23] MEDS: REMERON PO SCH (21:16)
[2019-01-24] MEDS: SYNTHROID PO SCH (06:04)
--- NOTE | 2019-01-24 09:35 | Progress Note ---
Subjective Date of service: 01/24/19 Principal diagnosis: Schizophrenia, depression, dementia Subjective Comment: Patient is physically aggressive towards staffs, urinates on the floor, hyperactive, agitated, intrusive and disruptive. She received PRN Haldol and Lorazepam last night. She is sedated this morning. Objective - Criteria for Continued Treatment Criteria for Continued Treatment: Improving Level of Functioning, Stablizing Level of Functioning, Improving Emotional/Socia - Mental Status Mental Status: Oriented x 1 Person only - Objective Observation Participation Level: Minimal Assessment and Plan - Patient Problems (1) MDD (major depressive disorder), recurrent episode, severe Current Visit: Yes Status: Acute Plan to address problem: Patient will be admitted for inpatient psychiatric evaluation, medication adjustment and close monitoring The patient's behavior, mood, sleep and appetite will be closely monitored. Patient will be enrolled in individual and group therapeutic sessions and encouraged to attend. Patient will be provided with a safe and structured environment. Patient's physical health needs will be addressed by the Hospitalist. Social Assessment will be completed and the Environmental Health Manager will work with patient and family to ensure a suitable and safe disposition Medication adjustment will be made as clinically indicated. (2) Major neurocognitive disorder due to Alzheimer's disease, probable, with behavioral disturbance Current Visit: Yes Status: Acute Plan to address problem: As above (3) Schizophrenia Current Visit: No Status: Acute Plan to address problem: As above (4) Suicidal ideation Current Visit: No Status: Acute Plan to address problem: As above Medications & Allergies - Medications Allergies/Adverse Reactions: Allergies No Known Allergies Allergy (Verified 01/11/19 18:08) Home Medications: Home Medications Medication Instructions Recorded Confirmed Last Taken Type AtorvaSTATin [Lipitor] 10 mg PO DAILY 01/11/19 01/12/19 Unknown History Benztropine [Cogentin] 1 mg PO QDAY 01/11/19 01/12/19 Unknown History Donepezil [Aricept] 10 mg PO QHS 01/11/19 01/12/19 Unknown History Gabapentin [Neurontin] 400 mg PO TID 01/11/19 01/12/19 Unknown History Levothyroxine [Synthroid] 50 mcg PO QAM 01/11/19 01/12/19 Unknown History Memantine [Namenda] 10 mg PO BID 01/11/19 01/12/19 Unknown History Mirtazapine [Remeron 30mg TAB] 30 mg PO QHS 01/11/19 01/12/19 Unknown History amLODIPine [Norvasc] 10 mg PO DAILY 01/11/19 01/12/19 Unknown History risperiDONE [RisperDAL] 1 mg PO TID 01/11/19 01/12/19 Unknown History Active Medications: Generic Name Dose Route Start Last Admin Trade Name Freq PRN Reason Stop Dose Admin Amlodipine Besylate 10 mg 01/13/19 10:00 01/23/19 09:45 Norvasc PO 10 mg QDAY [facility] Administration Atorvastatin Calcium 10 mg 01/12/19 22:00 01/23/19 21:16 Lipitor PO 10 mg QHS [facility] Administration Benztropine Mesylate 1 mg 01/13/19 10:00 01/23/19 09:45 Cogentin PO 1 mg QDAY [facility] Administration Dextrose 50 ml 01/16/19 14:41 D50w (25gm) Syringe IV PRN PRN Hypoglycemia Donepezil HCl 10 mg 01/12/19 22:00 01/23/19 21:16 Aricept PO 10 mg QHS [facility] Administration Gabapentin 400 mg 01/13/19 08:00 01/23/19 19:54 Neurontin PO 400 mg TID [facility] Administration Haloperidol 5 mg 01/12/19 20:49 01/23/19 09:57 Haldol PO 5 mg Q6H PRN Administration Agitation Insulin Human Lispro 0 unit 01/16/19 16:30 01/23/19 16:53 Humalog SUB-Q Not Given [facility] Protocol Levothyroxine Sodium 50 mcg 01/13/19 06:00 01/24/19 06:04 Synthroid PO 50 mcg DAILY@0600 [facility] Administration Lorazepam 2 mg 01/12/19 20:48 01/23/19 10:55 Ativan PO 2 mg Q6H PRN Administration Agitation Memantine 10 mg 01/12/19 22:00 01/23/19 21:16 Namenda PO 10 mg Q12HR [facility] Administration Metformin HCl 500 mg 01/16/19 17:00 01/23/19 16:53 Glucophage PO Not Given BIDDIAB [facility] Mirtazapine 30 mg 01/12/19 22:00 01/23/19 21:16 Remeron PO 30 mg QHS [facility] Administration Risperidone 1 mg 01/13/19 08:00 01/23/19 19:54 Risperdal PO 1 mg TID [facility] Administration
[2019-01-24] MEDS: RisperDAL PO SCH ×3 (10:20→20:28)
[2019-01-24] MEDS: GLUCOPHAGE PO SCH ×2 (10:21→16:43)
[2019-01-24] MEDS: NEURONTIN PO SCH ×3 (10:21→20:28)
[2019-01-24] MEDS: NORVASC PO SCH (10:21)
[2019-01-24] MEDS: NAMENDA PO SCH ×2 (10:22→21:21)
[2019-01-24] MEDS: COGENTIN PO SCH (10:22)
[2019-01-24] MEDS: HumaLOG SUB-Q SCH ×3 (10:23→16:34)
[2019-01-24] MEDS: REMERON PO SCH (21:21)
[2019-01-24] MEDS: ARICEPT PO SCH (21:21)
[2019-01-25] MEDS: ATIVAN PO PRN (02:09)
[2019-01-25] MEDS: SYNTHROID PO SCH (06:53)
--- NOTE | 2019-01-25 08:34 | Progress Note ---
Subjective Date of service: 01/25/19 Principal diagnosis: Schizophrenia, depression, dementia Subjective Comment: Patient is sedated this morning from receiving PRN Ativan. She is intrusive, restless and agitated hence requires prn meds. She is compliant with meds, eating and sleeping well.. Objective - Criteria for Continued Treatment Criteria for Continued Treatment: Improving Level of Functioning, Stablizing Level of Functioning, Improving Emotional/Socia, Decreasing Frequency of Hospitalization - Mental Status Mental Status: Oriented x 1 Person only - Objective Observation Participation Level: Minimal Assessment and Plan - Patient Problems (1) MDD (major depressive disorder), recurrent episode, severe Current Visit: Yes Status: Acute Plan to address problem: Patient will be admitted for inpatient psychiatric evaluation, medication adjustment and close monitoring The patient's behavior, mood, sleep and appetite will be closely monitored. Patient will be enrolled in individual and group therapeutic sessions and encouraged to attend. Patient will be provided with a safe and structured environment. Patient's physical health needs will be addressed by the Hospitalist. Social Assessment will be completed and the Seat Cover Maker will work with patient and family to ensure a suitable and safe disposition Medication adjustment will be made as clinically indicated. (2) Major neurocognitive disorder due to Alzheimer's disease, probable, with behavioral disturbance Current Visit: Yes Status: Acute Plan to address problem: As above (3) Schizophrenia Current Visit: No Status: Acute Plan to address problem: As above (4) Suicidal ideation Current Visit: No Status: Acute Plan to address problem: As above Medications & Allergies - Medications Allergies/Adverse Reactions: Allergies No Known Allergies Allergy (Verified 01/11/19 18:08) Home Medications: Home Medications Medication Instructions Recorded Confirmed Last Taken Type AtorvaSTATin [Lipitor] 10 mg PO DAILY 01/11/19 01/12/19 Unknown History Benztropine [Cogentin] 1 mg PO QDAY 01/11/19 01/12/19 Unknown History Donepezil [Aricept] 10 mg PO QHS 01/11/19 01/12/19 Unknown History Gabapentin [Neurontin] 400 mg PO TID 01/11/19 01/12/19 Unknown History Levothyroxine [Synthroid] 50 mcg PO QAM 01/11/19 01/12/19 Unknown History Memantine [Namenda] 10 mg PO BID 01/11/19 01/12/19 Unknown History Mirtazapine [Remeron 30mg TAB] 30 mg PO QHS 01/11/19 01/12/19 Unknown History amLODIPine [Norvasc] 10 mg PO DAILY 01/11/19 01/12/19 Unknown History risperiDONE [RisperDAL] 1 mg PO TID 01/11/19 01/12/19 Unknown History Active Medications: Generic Name Dose Route Start Last Admin Trade Name Darshana PRN Reason Stop Dose Admin Amlodipine Besylate 10 mg 01/13/19 10:00 01/24/19 10:21 Norvasc PO 10 mg QDAY SELWYN Administration Atorvastatin Calcium 10 mg 01/12/19 22:00 01/24/19 21:21 Lipitor PO 10 mg QHS SELWYN Administration Benztropine Mesylate 1 mg 01/13/19 10:00 01/24/19 10:22 Cogentin PO 1 mg QDAY SELWYN Administration Dextrose 50 ml 01/16/19 14:41 D50w (25gm) Syringe IV PRN PRN Hypoglycemia Donepezil HCl 10 mg 01/12/19 22:00 01/24/19 21:21 Aricept PO 10 mg QHS SELWYN Administration Gabapentin 400 mg 01/13/19 08:00 01/24/19 20:28 Neurontin PO 400 mg TID SELWYN Administration Haloperidol 5 mg 01/12/19 20:49 01/23/19 09:57 Haldol PO 5 mg Q6H PRN Administration Agitation Insulin Human Lispro 0 unit 01/16/19 16:30 01/24/19 16:34 Humalog SUB-Q Not Given AC [facility] Protocol Levothyroxine Sodium 50 mcg 01/13/19 06:00 01/25/19 06:53 Synthroid PO 50 mcg DAILY@0600 SELWYN Administration Lorazepam 2 mg 01/12/19 20:48 01/25/19 02:09 Ativan PO 2 mg Q6H PRN Administration Agitation Memantine 10 mg 01/12/19 22:00 01/24/19 21:21 Namenda PO 10 mg Q12HR SELWYN Administration Metformin HCl 500 mg 01/16/19 17:00 01/24/19 16:43 Glucophage PO 500 mg BIDDIAB SELWYN Administration Mirtazapine 30 mg 01/12/19 22:00 01/24/19 21:21 Remeron PO 30 mg QHS SELWYN Administration Risperidone 1 mg 01/13/19 08:00 01/24/19 20:28 Risperdal PO 1 mg TID SELWYN Administration
[2019-01-25] MEDS: COGENTIN PO SCH (11:11)
[2019-01-25] MEDS: NAMENDA PO SCH ×2 (11:11→21:22)
[2019-01-25] MEDS: RisperDAL PO SCH (11:11)
[2019-01-25] MEDS: NEURONTIN PO SCH (11:11)
[2019-01-25] MEDS: GLUCOPHAGE PO SCH (11:12)
[2019-01-25] MEDS: NORVASC PO SCH (11:12)
[2019-01-25] MEDS: HumaLOG SUB-Q SCH (11:14)
[2019-01-25] MEDS: REMERON PO SCH (21:22)
[2019-01-25] MEDS: ARICEPT PO SCH (21:22)
[2019-01-26] MEDS: SYNTHROID PO SCH (06:19)
[2019-01-26] MEDS: HumaLOG SUB-Q SCH ×4 (09:36→16:30)
[2019-01-26] MEDS: NEURONTIN PO SCH ×4 (09:39→19:55)
[2019-01-26] MEDS: RisperDAL PO SCH ×4 (09:40→19:55)
[2019-01-26] MEDS: GLUCOPHAGE PO SCH ×3 (09:41→17:52)
[2019-01-26] MEDS: NAMENDA PO SCH ×2 (09:46→21:27)
[2019-01-26] MEDS: COGENTIN PO SCH (09:46)
[2019-01-26] MEDS: NORVASC PO SCH (10:22)
[2019-01-26] MEDS: REMERON PO SCH (21:27)
[2019-01-26] MEDS: ARICEPT PO SCH (21:27)
[2019-01-27] MEDS: SYNTHROID PO SCH (06:15)
[2019-01-27] MEDS: HumaLOG SUB-Q SCH ×3 (07:57→16:18)
[2019-01-27] MEDS: GLUCOPHAGE PO SCH ×2 (09:19→16:23)
[2019-01-27] MEDS: RisperDAL PO SCH ×3 (09:19→21:24)
[2019-01-27] MEDS: NEURONTIN PO SCH ×3 (09:19→21:24)
[2019-01-27] MEDS: COGENTIN PO SCH (09:20)
[2019-01-27] MEDS: NORVASC PO SCH (09:20)
[2019-01-27] MEDS: NAMENDA PO SCH ×2 (09:20→23:15)
--- NOTE | 2019-01-27 09:35 | Progress Note ---
Subjective Date of service: 01/26/19 Principal diagnosis: Schizophrenia, depression, dementia Subjective Comment: Patient is intrusive, restless and agitated hence requires prn meds. She is compliant with meds, eating and sleeping well.. Objective - Criteria for Continued Treatment Criteria for Continued Treatment: Improving Level of Functioning, Stablizing Level of Functioning, Improving Emotional/Socia - Mental Status Mental Status: Oriented x 1 Person only - Objective Observation Participation Level: Minimal Assessment and Plan - Patient Problems (1) MDD (major depressive disorder), recurrent episode, severe Current Visit: Yes Status: Acute Plan to address problem: Patient will be admitted for inpatient psychiatric evaluation, medication adjustment and close monitoring The patient's behavior, mood, sleep and appetite will be closely monitored. Patient will be enrolled in individual and group therapeutic sessions and encouraged to attend. Patient will be provided with a safe and structured environment. Patient's physical health needs will be addressed by the Hospitalist. Social Assessment will be completed and the Data Analytics Specialist will work with patient and family to ensure a suitable and safe disposition Medication adjustment will be made as clinically indicated. (2) Major neurocognitive disorder due to Alzheimer's disease, probable, with behavioral disturbance Current Visit: Yes Status: Acute Plan to address problem: As above (3) Schizophrenia Current Visit: No Status: Inactive Plan to address problem: As above (4) Suicidal ideation Current Visit: No Status: Inactive Plan to address problem: As above
--- NOTE | 2019-01-27 09:40 | Progress Note ---
Subjective Date of service: 01/27/19 Principal diagnosis: Schizophrenia, depression, dementia Subjective Comment: Patient wanders, is intrusive but easier to redirect. She slept well last night. Objective - Criteria for Continued Treatment Criteria for Continued Treatment: Improving Level of Functioning, Stablizing Level of Functioning, Improving Emotional/Socia - Mental Status Mental Status: Oriented x 1 Person only - Objective Observation Participation Level: Minimal Assessment and Plan - Patient Problems (1) MDD (major depressive disorder), recurrent episode, severe Current Visit: Yes Status: Acute Plan to address problem: Patient will be admitted for inpatient psychiatric evaluation, medication adjustment and close monitoring The patient's behavior, mood, sleep and appetite will be closely monitored. Patient will be enrolled in individual and group therapeutic sessions and encouraged to attend. Patient will be provided with a safe and structured environment. Patient's physical health needs will be addressed by the Hospitalist. Social Assessment will be completed and the Shuttleless Loom Weaver will work with patient and family to ensure a suitable and safe disposition Medication adjustment will be made as clinically indicated. Will add Depakote 125mg tid and Trazodone 25mg qid prn to help with agitation (2) Major neurocognitive disorder due to Alzheimer's disease, probable, with behavioral disturbance Current Visit: Yes Status: Acute Plan to address problem: As above (3) Schizophrenia Current Visit: No Status: Inactive Plan to address problem: As above (4) Suicidal ideation Current Visit: No Status: Inactive Plan to address problem: As above Medications & Allergies - Medications Allergies/Adverse Reactions: Allergies No Known Allergies Allergy (Verified 01/11/19 18:08) Home Medications: Home Medications Medication Instructions Recorded Confirmed Last Taken Type AtorvaSTATin [Lipitor] 10 mg PO DAILY 01/11/19 01/12/19 Unknown History Benztropine [Cogentin] 1 mg PO QDAY 01/11/19 01/12/19 Unknown History Donepezil [Aricept] 10 mg PO QHS 01/11/19 01/12/19 Unknown History Gabapentin [Neurontin] 400 mg PO TID 01/11/19 01/12/19 Unknown History Levothyroxine [Synthroid] 50 mcg PO QAM 01/11/19 01/12/19 Unknown History Memantine [Namenda] 10 mg PO BID 01/11/19 01/12/19 Unknown History Mirtazapine [Remeron 30mg TAB] 30 mg PO QHS 01/11/19 01/12/19 Unknown History amLODIPine [Norvasc] 10 mg PO DAILY 01/11/19 01/12/19 Unknown History risperiDONE [RisperDAL] 1 mg PO TID 01/11/19 01/12/19 Unknown History Active Medications: Generic Name Dose Route Start Last Admin Trade Name Freq PRN Reason Stop Dose Admin Amlodipine Besylate 10 mg 01/13/19 10:00 01/27/19 09:20 Norvasc PO 10 mg QDAY SELWYN Administration Atorvastatin Calcium 10 mg 01/12/19 22:00 01/26/19 21:27 Lipitor PO 10 mg QHS SELWYN Administration Benztropine Mesylate 1 mg 01/13/19 10:00 01/27/19 09:20 Cogentin PO 1 mg QDAY SELWYN Administration Dextrose 50 ml 01/16/19 14:41 D50w (25gm) Syringe IV PRN PRN Hypoglycemia Donepezil HCl 10 mg 01/12/19 22:00 01/26/19 21:27 Aricept PO 10 mg QHS SELWYN Administration Gabapentin 400 mg 01/13/19 08:00 01/27/19 09:19 Neurontin PO 400 mg TID SELWYN Administration Haloperidol 5 mg 01/12/19 20:49 01/23/19 09:57 Haldol PO 5 mg Q6H PRN Administration Agitation Insulin Human Lispro 0 unit 01/16/19 16:30 01/27/19 07:57 Humalog SUB-Q Not Given AC [facility] Protocol Levothyroxine Sodium 50 mcg 01/13/19 06:00 01/27/19 06:15 Synthroid PO 50 mcg DAILY@0600 SELWYN Administration Lorazepam 2 mg 01/12/19 20:48 01/25/19 02:09 Ativan PO 2 mg Q6H PRN Administration Agitation Memantine 10 mg 01/12/19 22:00 01/27/19 09:20 Namenda PO 10 mg Q12HR SELWYN Administration Metformin HCl 500 mg 01/16/19 17:00 01/27/19 09:19 Glucophage PO 500 mg BIDDIAB SELWYN Administration Mirtazapine 30 mg 01/12/19 22:00 01/26/19 21:27 Remeron PO 30 mg QHS SELWYN Administration Risperidone 1 mg 01/13/19 08:00 01/27/19 09:19 Risperdal PO 1 mg TID SELWYN Administration
[2019-01-27] MEDS ORDERED: HALDOL IM PRN (09:43)
[2019-01-27] MEDS ORDERED: DESYREL PO PRN (10:30)
[2019-01-27] MEDS: ARICEPT PO SCH (21:24)
[2019-01-27] MEDS: REMERON PO SCH (21:25)
[2019-01-28] MEDS: SYNTHROID PO SCH (06:02)
[2019-01-28] MEDS: HumaLOG SUB-Q SCH ×3 (07:41→17:20)
[2019-01-28] MEDS: COGENTIN PO SCH (09:19)
[2019-01-28] MEDS: NORVASC PO SCH (09:19)
[2019-01-28] MEDS: NEURONTIN PO SCH ×3 (09:20→20:02)
[2019-01-28] MEDS: RisperDAL PO SCH ×3 (09:20→20:02)
[2019-01-28] MEDS: GLUCOPHAGE PO SCH ×2 (09:20→17:20)
[2019-01-28] MEDS: NAMENDA PO SCH ×2 (09:49→21:10)
--- NOTE | 2019-01-28 12:07 | Progress Note ---
Subjective Date of service: 01/28/19 Principal diagnosis: Schizophrenia, depression, dementia Subjective Comment: Patient wanders, is intrusive but easier to redirect. She slept well last night. Objective - Criteria for Continued Treatment Criteria for Continued Treatment: Improving Level of Functioning, Stablizing Level of Functioning, Improving Emotional/Socia - Objective Observation Participation Level: Moderate Assessment and Plan - Patient Problems (1) MDD (major depressive disorder), recurrent episode, severe Current Visit: Yes Status: Acute Plan to address problem: Patient will be admitted for inpatient psychiatric evaluation, medication adj ustment and close monitoring The patient's behavior, mood, sleep and appetite will be closely monitored. Patient will be enrolled in individual and group therapeutic sessions and encouraged to attend. Patient will be provided with a safe and structured environment. Patient's physical health needs will be addressed by the Hospitalist. Social Assessment will be completed and the Microbiology Professor will work with patient and family to ensure a suitable and safe disposition Medication adjustment will be made as clinically indicated. Will continue Depakote 125mg tid and Trazodone 25mg qid prn to help with agitation (01/28) (2) Major neurocognitive disorder due to Alzheimer's disease, probable, with behavioral disturbance Current Visit: Yes Status: Acute (3) Schizophrenia Current Visit: No Status: Inactive (4) Suicidal ideation Current Visit: No Status: Inactive Medications & Allergies - Medications Allergies/Adverse Reactions: Allergies No Known Allergies Allergy (Verified 01/11/19 18:08) Home Medications: Home Medications Medication Instructions Recorded Confirmed Last Taken Type AtorvaSTATin [Lipitor] 10 mg PO DAILY 01/11/19 01/12/19 Unknown History Benztropine [Cogentin] 1 mg PO QDAY 01/11/19 01/12/19 Unknown History Donepezil [Aricept] 10 mg PO QHS 01/11/19 01/12/19 Unknown History Gabapentin [Neurontin] 400 mg PO TID 01/11/19 01/12/19 Unknown History Levothyroxine [Synthroid] 50 mcg PO QAM 01/11/19 01/12/19 Unknown History Memantine [Namenda] 10 mg PO BID 01/11/19 01/12/19 Unknown History Mirtazapine [Remeron 30mg TAB] 30 mg PO QHS 01/11/19 01/12/19 Unknown History amLODIPine [Norvasc] 10 mg PO DAILY 01/11/19 01/12/19 Unknown History risperiDONE [RisperDAL] 1 mg PO TID 01/11/19 01/12/19 Unknown History Active Medications: Generic Name Dose Route Start Last Admin Trade Name Freq PRN Reason Stop Dose Admin Amlodipine Besylate 10 mg 01/13/19 10:00 01/28/19 09:19 Norvasc PO 10 mg QDAY SELWYN Administration Atorvastatin Calcium 10 mg 01/12/19 22:00 01/27/19 21:24 Lipitor PO 10 mg QHS SELWYN Administration Benztropine Mesylate 1 mg 01/13/19 10:00 01/28/19 09:19 Cogentin PO 1 mg QDAY SELWYN Administration Dextrose 50 ml 01/16/19 14:41 D50w (25gm) Syringe IV PRN PRN Hypoglycemia Divalproex Sodium 250 mg 01/27/19 14:00 01/28/19 06:04 Depakote Sprinkle PO 250 mg Q8HR SELWYN Administration Donepezil HCl 10 mg 01/12/19 22:00 01/27/19 21:24 Aricept PO 10 mg QHS SELWYN Administration Gabapentin 400 mg 01/13/19 08:00 01/28/19 09:20 Neurontin PO 400 mg TID SELWYN Administration Haloperidol 5 mg 01/12/19 20:49 01/23/19 09:57 Haldol PO 5 mg Q6H PRN Administration Agitation Haloperidol Lactate 5 mg 01/27/19 09:43 Haldol IM Q6H PRN Agitation Insulin Human Lispro 0 unit 01/16/19 16:30 01/28/19 07:41 Humalog SUB-Q Not Given AC [facility] Protocol Levothyroxine Sodium 50 mcg 01/13/19 06:00 01/28/19 06:02 Synthroid PO 50 mcg DAILY@0600 SELWYN Administration Memantine 10 mg 01/12/19 22:00 01/28/19 09:49 Namenda PO 10 mg Q12HR SELWYN Administration Metformin HCl 500 mg 01/16/19 17:00 01/28/19 09:20 Glucophage PO 500 mg BIDDIAB SELWYN Administration Mirtazapine 30 mg 01/12/19 22:00 01/27/19 21:25 Remeron PO 30 mg QHS SELWYN Administration Risperidone 1 mg 01/13/19 08:00 01/28/19 09:20 Risperdal PO 1 mg TID SELWYN Administration Trazodone HCl 25 mg 01/27/19 10:30 Desyrel PO QID PRN Agitation Mental Status Exam - Vital signs Last Vital Signs Temp 98.4 F 01/28/19 08:55 Pulse 83 01/28/19 09:19 Resp 16 01/28/19 08:55 BP 121/65 01/28/19 09:19 Pulse Ox 100 01/28/19 08:55 - Exam Orientation: person Affect: flat Mood: congruent with affect Thought Process: Disorganized Perceptions: hallucinations Speech: paucity Concentration: distractible Motor activity: tense Level of consciousness: alert Memory: Recent Impaired, Remote Impaired Interaction: uncooperative
[2019-01-28] MEDS: ARICEPT PO SCH (21:06)
[2019-01-28] MEDS: REMERON PO SCH (21:06)
[2019-01-29] MEDS: SYNTHROID PO SCH (05:33)
[2019-01-29] MEDS: HumaLOG SUB-Q SCH ×3 (07:30→17:21)
[2019-01-29] MEDS: RisperDAL PO SCH ×3 (08:39→20:47)
[2019-01-29] MEDS: GLUCOPHAGE PO SCH ×2 (08:40→17:21)
[2019-01-29] MEDS: NEURONTIN PO SCH ×3 (09:25→20:47)
[2019-01-29] MEDS: NAMENDA PO SCH ×2 (09:26→21:02)
[2019-01-29] MEDS: NORVASC PO SCH (09:29)
[2019-01-29] MEDS: COGENTIN PO SCH (11:39)
[2019-01-29] MEDS: ARICEPT PO SCH (21:02)
[2019-01-29] MEDS: REMERON PO SCH (21:02)
[2019-01-30] MEDS: SYNTHROID PO SCH (06:11)
[2019-01-30] MEDS: HumaLOG SUB-Q SCH ×3 (08:00→16:43)
[2019-01-30] MEDS: NEURONTIN PO SCH ×3 (08:51→20:50)
[2019-01-30] MEDS: RisperDAL PO SCH ×3 (08:51→20:50)
[2019-01-30] MEDS: GLUCOPHAGE PO SCH ×2 (08:51→17:44)
[2019-01-30] MEDS: COGENTIN PO SCH (10:09)
[2019-01-30] MEDS: NAMENDA PO SCH ×2 (10:10→21:01)
[2019-01-30] MEDS: NORVASC PO SCH (10:10)
[2019-01-30] MEDS: ARICEPT PO SCH (21:01)
[2019-01-30] MEDS: REMERON PO SCH (21:01)
--- NOTE | 2019-01-31 06:02 | Progress Note ---
Subjective Date of service: 01/29/19 Principal diagnosis: Schizophrenia, depression, dementia Subjective Comment: Patient wanders, is intrusive but easier to redirect. She slept well last night. Orientation: person Affect: flat Mood: congruent with affect Thought Process: Disorganized Perceptions: hallucinations Speech: paucity Concentration: distractible Motor activity: tense Level of consciousness: alert Memory: Recent Impaired, Remote Impaired Interaction: uncooperative Objective - Criteria for Continued Treatment Criteria for Continued Treatment: Improving Level of Functioning, Stablizing Level of Functioning, Improving Emotional/Socia - Objective Observation Participation Level: Minimal Assessment and Plan - Patient Problems (1) MDD (major depressive disorder), recurrent episode, severe Current Visit: Yes Status: Acute Plan to address problem: Patient will be admitted for inpatient psychiatric evaluation, medication adjustment and close monitoring The patient's behavior, mood, sleep and appetite will be closely monitored. Patient will be enrolled in individual and group therapeutic sessions and encouraged to attend. Patient will be provided with a safe and structured environment. Patient's physical health needs will be addressed by the Hospitalist. Social Assessment will be completed and the Toy Assembly Supervisor will work with patient and family to ensure a suitable and safe disposition Medication adjustment will be made as clinically indicated. Will continue Depakote 125mg tid and Trazodone 25mg qid prn to help with agitation (01/28) (2) Major neurocognitive disorder due to Alzheimer's disease, probable, with behavioral disturbance Current Visit: Yes Status: Acute Plan to address problem: As above (3) Schizophrenia Current Visit: No Status: Inactive Plan to address problem: As above (4) Suicidal ideation Current Visit: No Status: Inactive Plan to address problem: As above
--- NOTE | 2019-01-31 06:06 | Progress Note ---
Subjective Date of service: 01/30/19 Principal diagnosis: Schizophrenia, depression, dementia Subjective Comment: Patient wanders, is intrusive but easier to redirect. She sleeps and eats well. Compliant with meds with no reported or observed side effects. Orientation: person Affect: flat Mood: congruent with affect Thought Process: Disorganized Perceptions: hallucinations Speech: paucity Concentration: distractible Motor activity: tense Level of consciousness: alert Memory: Recent Impaired, Remote Impaired Interaction: uncooperative Objective - Criteria for Continued Treatment Criteria for Continued Treatment: Improving Level of Functioning, Stablizing Level of Functioning, Improving Emotional/Socia, Decreasing Frequency of Hospitalization - Objective Observation Participation Level: Minimal Assessment and Plan - Patient Problems (1) MDD (major depressive disorder), recurrent episode, severe Current Visit: Yes Status: Acute Plan to address problem: Patient will be admitted for inpatient psychiatric evaluation, medication adjustment and close monitoring The patient's behavior, mood, sleep and appetite will be closely monitored. Patient will be enrolled in individual and group therapeutic sessions and encouraged to attend. Patient will be provided with a safe and structured environment. Patient's physical health needs will be addressed by the Hospitalist. Social Assessment will be completed and the Pre Billing Specialist will work with patient and family to ensure a suitable and safe disposition Medication adjustment will be made as clinically indicated. Will continue Depakote 125mg tid and Trazodone 25mg qid prn to help with agitation (01/28) (2) Major neurocognitive disorder due to Alzheimer's disease, probable, with behavioral disturbance Current Visit: Yes Status: Acute Plan to address problem: As above (3) Schizophrenia Current Visit: No Status: Inactive Plan to address problem: As above (4) Suicidal ideation Current Visit: No Status: Inactive Plan to address problem: As above
[2019-01-31] MEDS: SYNTHROID PO SCH (06:47)
[2019-01-31] MEDS: GLUCOPHAGE PO SCH ×2 (08:42→17:51)
[2019-01-31] MEDS: HumaLOG SUB-Q SCH ×3 (08:42→17:32)
[2019-01-31] MEDS: RisperDAL PO SCH ×3 (08:42→19:41)
[2019-01-31] MEDS: NEURONTIN PO SCH ×3 (09:30→19:41)
[2019-01-31] MEDS: NORVASC PO SCH (10:30)
[2019-01-31] MEDS: COGENTIN PO SCH (10:31)
[2019-01-31] MEDS: NAMENDA PO SCH ×2 (10:31→21:04)
--- NOTE | 2019-01-31 11:55 | Progress Note ---
Subjective Date of service: 01/31/19 Principal diagnosis: Schizophrenia, depression, dementia Subjective Comment: Patient wanders, is intrusive but easier to redirect. She sleeps and eats well. Compliant with meds with no reported or observed side effects. Orientation: person Affect: flat Mood: congruent with affect Thought Process: Disorganized Perceptions: hallucinations Speech: paucity Concentration: distractible Motor activity: tense Level of consciousness: alert Memory: Recent Impaired, Remote Impaired Interaction: uncooperative Objective - Criteria for Continued Treatment Criteria for Continued Treatment: Stablizing Level of Functioning, Improving Emotional/Socia - Objective Observation Participation Level: Moderate Assessment and Plan - Patient Problems (1) MDD (major depressive disorder), recurrent episode, severe Current Visit: Yes Status: Acute Plan to address problem: Patient will be admitted for inpatient psychiatric evaluation, medication adjustment and close monitoring The patient's behavior, mood, sleep and appetite will be closely monitored. Patient will be enrolled in individual and group therapeutic sessions and encouraged to attend. Patient will be provided with a safe and structured environment. Patient's physical health needs will be addressed by the Hospitalist. Social Assessment will be completed and the Lead Systems Architect will work with patient and family to ensure a suitable and safe disposition Medication adjustment will be made as clinically indicated. Will continue Depakote 125mg tid and Trazodone 25mg qid prn to help with agitation (01/28) (2) Major neurocognitive disorder due to Alzheimer's disease, probable, with behavioral disturbance Current Visit: Yes Status: Acute Plan to address problem: As above (3) Schizophrenia Current Visit: No Status: Inactive Plan to address problem: As above (4) Suicidal ideation Current Visit: No Status: Inactive Plan to address problem: As above
[2019-01-31] MEDS: ARICEPT PO SCH (21:04)
[2019-01-31] MEDS: REMERON PO SCH (21:04)
[2019-02-01] MEDS: SYNTHROID PO SCH (06:15)
[2019-02-01] MEDS: HumaLOG SUB-Q SCH ×3 (07:06→16:49)
--- NOTE | 2019-02-01 08:01 | Discharge Summary ---
Providers - Providers Date of Admission: 01/12/19 13:02 Date of discharge: 02/02/19 Attending physician: KIT MCFARLAND MD 01/12/19 11:14 Consult to Physician [CONS] Routine Comment: Consulting Provider: ABDULLAHI DEGROOT Physician Instructions: Reason For Exam: Medical H&P [facility] Reason for admission: Threatened suicide Allergies/Adverse Reactions: Allergies No Known Allergies Allergy (Verified 01/11/19 18:08) Vital Signs: Last Vital Signs Temp 98.1 F 01/31/19 21:30 Pulse 62 01/31/19 21:30 Resp 18 01/31/19 21:30 BP 103/81 01/31/19 21:30 Pulse Ox 98 01/31/19 21:30 Last Lab: Laboratory Last Values WBC 5.6 K/mm3 (4.5-11.0) 01/15/19 14:47 RBC 4.52 M/mm3 (3.65-5.03) 01/15/19 14:47 Hgb 12.8 gm/dl (10.1-14.3) 01/15/19 14:47 Hct 39.4 % (30.3-42.9) 01/15/19 14:47 MCV 87 fl (79-97) 01/15/19 14:47 MCH 28 pg (28-32) 01/15/19 14:47 MCHC 32 % (30-34) 01/15/19 14:47 RDW 15.5 % (13.2-15.2) H 01/15/19 14:47 Plt Count 276 K/mm3 (140-440) 01/15/19 14:47 Sodium 139 mmol/L (137-145) 01/12/19 13:29 Potassium 4.0 mmol/L (3.6-5.0) 01/12/19 13:29 Chloride 101.9 mmol/L (98-107) 01/12/19 13:29 Carbon Dioxide 25 mmol/L (22-30) 01/12/19 13:29 16 mmol/L 01/12/19 13:29 BUN 13 mg/dL (7-17) 01/12/19 13:29 0.9 mg/dL (0.7-1.2) 01/12/19 13:29 Estimated GFR > 60 ml/min 01/12/19 13:29 14 % 01/12/19 13:29 Glucose 126 mg/dL (65-100) H 01/12/19 13:29 POC Glucose 101 (70-105) 02/01/19 06:34 7.8 % (4-6) H 01/15/19 14:47 Calcium 9.6 mg/dL (8.4-10.2) 01/12/19 13:29 0.30 mg/dL (0.1-1.2) 01/12/19 13:29 AST 15 units/L (5-40) 01/12/19 13:29 ALT 7 units/L (7-56) 01/12/19 13:29 92 units/L (35-129) 01/12/19 13:29 7.1 g/dL (6.3-8.2) 01/12/19 13:29 3.9 g/dL (3.9-5) 01/12/19 13:29 1.2 % 01/12/19 13:29 Triglycerides 100 mg/dL (2-149) 01/15/19 14:47 Cholesterol 188 mg/dL (50-199) 01/15/19 14:47 130 mg/dL (50-130) 01/15/19 14:47 58 mg/dL (40-59) 01/15/19 14:47 3.24 % 01/15/19 14:47 TSH 11.210 mlU/mL (0.270-4.200) H 01/15/19 14:47 Yellow (Yellow) 01/23/19 Unknown Clear (Clear) 01/23/19 Unknown 5.0 (5.0-7.0) 01/23/19 Unknown Ur Specific [place] 1.017 (1.003-1.030) 01/23/19 Unknown <15 mg/dl mg/dL (Negative) 01/23/19 Unknown Neg mg/dL (Negative) 01/23/19 Unknown Neg mg/dL (Negative) 01/23/19 Unknown Neg (Negative) 01/23/19 Unknown Neg (Negative) 01/23/19 Unknown Neg (Negative) 01/23/19 Unknown < 2.0 mg/dL (<2.0) 01/23/19 Unknown Ur Leukocyte Esterase Mod (Negative) 01/23/19 Unknown 4.0 /HPF (0.0-6.0) 01/23/19 Unknown 2.0 /HPF (0.0-6.0) 01/23/19 Unknown U Epithel Cells (Auto) < 1.0 /HPF (0-13.0) 01/23/19 Unknown Few /HPF 01/23/19 Unknown - Discharge Diagnoses (1) MDD (major depressive disorder), recurrent episode, severe Status: Acute (2) Major neurocognitive disorder due to Alzheimer's disease, probable, with behavioral disturbance Status: Acute (3) Schizophrenia Status: Inactive (4) Suicidal ideation Status: Inactive Exam - Constitutional Vitals: Temp Pulse Resp BP Pulse Ox 98.1 F 62 18 103/81 98 01/31/19 21:30 01/31/19 21:30 01/31/19 21:30 01/31/19 21:30 01/31/19 21:30 Plan Care Plan Goals: Cooperate with care Plan of Treatment: No aggressive behaviors Health Concerns: Falls Assessment: MNCD, with behavioral disturbance [facility] Care Provider[facility] - 7 Days Prescriptions: Donepezil [Aricept] 10 mg PO QHS #30 tablet Mirtazapine [Remeron 30mg TAB] 30 mg PO QHS #30 tablet Benztropine [Cogentin] 1 mg PO QDAY #30 tablet Divalproex Sprinkle [Depakote Sprinkle] 250 mg PO Q8HR #90 capsule traZODone [Desyrel] 25 mg PO QID PRN #60 tablet PRN Reason: Agitation metFORMIN [Glucophage] 500 mg PO BIDDIAB #60 tablet AtorvaSTATin [Lipitor] 10 mg PO DAILY #30 tablet Memantine [Namenda] 10 mg PO BID #60 tablet Gabapentin [Neurontin] 400 mg PO TID #90 capsule amLODIPine [Norvasc] 10 mg PO DAILY #30 tablet risperiDONE [RisperDAL] 1 mg PO TID #90 tablet Levothyroxine [Synthroid] 50 mcg PO QAM #30 tablet
[2019-02-01] MEDS: RisperDAL PO SCH ×3 (10:19→20:07)
[2019-02-01] MEDS: GLUCOPHAGE PO SCH ×2 (10:19→16:49)
[2019-02-01] MEDS: NAMENDA PO SCH ×2 (10:19→21:00)
[2019-02-01] MEDS: NORVASC PO SCH (10:19)
[2019-02-01] MEDS: COGENTIN PO SCH (10:19)
[2019-02-01] MEDS: NEURONTIN PO SCH ×3 (10:20→20:06)
[2019-02-01] MEDS: ARICEPT PO SCH (21:00)
[2019-02-01] MEDS: REMERON PO SCH (21:01)
[2019-02-02] MEDS: SYNTHROID PO SCH (06:09)
[2019-02-02] MEDS: HumaLOG SUB-Q SCH ×2 (07:42→11:39)
[2019-02-02] MEDS: NEURONTIN PO SCH ×2 (08:39→14:10)
[2019-02-02] MEDS: RisperDAL PO SCH ×2 (08:39→14:10)
[2019-02-02] MEDS: GLUCOPHAGE PO SCH (08:39)
[2019-02-02 08:48] VITALS: BP 112/56
--- NOTE | 2019-02-02 08:48 | Progress Note ---
Subjective Date of service: 02/01/19 Principal diagnosis: Schizophrenia, depression, dementia Subjective Comment: Patient wanders, is intrusive but easier to redirect. She sleeps and eats well. Compliant with meds with no reported or observed side effects. Orientation: person Affect: flat Mood: congruent with affect Thought Process: Disorganized Perceptions: hallucinations Speech: paucity Concentration: distractible Motor activity: tense Level of consciousness: alert Memory: Recent Impaired, Remote Impaired Interaction: uncooperative Objective - Criteria for Continued Treatment Criteria for Continued Treatment: Stablizing Level of Functioning - Objective Observation Participation Level: Full Assessment and Plan - Patient Problems (1) MDD (major depressive disorder), recurrent episode, severe Current Visit: Yes Status: Acute Plan to address problem: Patient will be admitted for inpatient psychiatric evaluation, medication adjustment and close monitoring The patient's behavior, mood, sleep and appetite will be closely monitored. Patient will be enrolled in individual and group therapeutic sessions and encouraged to attend. Patient will be provided with a safe and structured environment. Patient's physical health needs will be addressed by the Hospitalist. Social Assessment will be completed and the Consumer Safety Inspector will work with patient and family to ensure a suitable and safe disposition Medication adjustment will be made as clinically indicated. Will continue Depakote 125mg tid and Trazodone 25mg qid prn to help with agitation (01/28) Discharge in am tomorrow (2) Major neurocognitive disorder due to Alzheimer's disease, probable, with behavioral disturbance Current Visit: Yes Status: Acute (3) Schizophrenia Current Visit: No Status: Inactive (4) Suicidal ideation Current Visit: No Status: Inactive
[2019-02-02] MEDS: COGENTIN PO SCH (09:15)
[2019-02-02] MEDS: NAMENDA PO SCH (09:15)
[2019-02-02] MEDS: NORVASC PO SCH (09:15)
== END 2019-02-02 16:17 | disposition home or self-care (01) | DRG 57 ==
LOC: 3A 10:09 → UNDOADMIN 10:09 → 5A 13:02
PROVIDERS: ADMIT Psychiatry & Neurology Psychiatry; ATTEND Psychiatry & Neurology Psychiatry
DX: G30.8 Other Alzheimer's disease (principal); F33.2 Major depressive disorder, recurrent severe without psychotic features; F02.81 Dementia in other diseases classified elsewhere, unspecified severity, with behavioral disturbance; I10 Essential (primary) hypertension; E11.65 Type 2 diabetes mellitus with hyperglycemia; E78.5 Hyperlipidemia, unspecified; E03.9 Hypothyroidism, unspecified; F20.9 Schizophrenia, unspecified; Z91.19 Patient's noncompliance with other medical treatment and regimen; Z79.84 Long term (current) use of oral hypoglycemic drugs
CPT/HCPCS: 36415; 70450; 80053; 80061; 80307; 80320; 81001; 82140; 82962; 83036; 84443; 85025; 85027; 99285; G0378; A9270-GY; G0480